=== PATIENT | male | born 1945 | race Native Hawaiian/Other Pacific Islander ===

== ENCOUNTER 2019-09-01 17:43 | Emergency (ER) | payer OTHER ==
[~2019-09-01] VITALS: Ht 175.3 cm; Wt 69.4 kg
[2019-09-01 18:23] LABS: PLATELET COUNT 347 K/uL (142-355)
[2019-09-01 18:29] LABS: POTASSIUM 3.6 mmol/L (3.6-5.2)
[2019-09-01 19:26] VITALS: BP 119/74; TEMP 98.3
[2019-09-02] MEDS ORDERED: TRAMADOL HYDROC50 MG PO (00:40)
[2019-09-02] MEDS ORDERED: NICOTINE T21 MG/241 TD (00:43)
[2019-09-02] MEDS ORDERED: DOCUSATE SOD PO (00:45)
[2019-09-02] MEDS ORDERED: KP FOLIC ACID1 MG PO (00:46)
[2019-09-02] MEDS ORDERED: MELATONIN3 MG PO (00:46)
[2019-09-02] MEDS ORDERED: [UNRECOGNIZED DRUG - OTHER] PO (00:48)
[2019-09-02] MEDS ORDERED: AMLODIPINE BESYLATE PO (00:49)
[2019-09-02] MEDS ORDERED: MULTI VITAMIN A1 TAB PO (00:49)
[2019-09-02] MEDS ORDERED: PEPCID20 MG PO (00:50)
[2019-09-02] MEDS ORDERED: THIA100T8 PO (00:51)
[2019-09-02] MEDS ORDERED: ONDA4TAB3 PO (00:52)
[2019-09-02] MEDS ORDERED: VITAMIN B-12100 MC1 PO (00:52)
[2019-09-02] MEDS ORDERED: SEROQUEL50 MG PO (04:32)
[2019-09-02] MEDS ORDERED: DOXYCYCLINE100 MG PO (04:33)
== END 2019-09-01 19:26 | disposition other institution (70) ==
LOC: ED 17:43
PROVIDERS: Emergency Medicine
DX: F03.90 Unspecified dementia, unspecified severity, without behavioral disturbance, psychotic disturbance, mood disturbance, and anxiety (principal); E86.0 Dehydration; Z04.6 Encounter for general psychiatric examination, requested by authority
CPT/HCPCS: 80053; 81000; 85027; 93005; 99283